=== PATIENT | male | born 1990 | race Caucasian/White ===

== ENCOUNTER 2019-04-26 04:58 | Emergency (ER) | payer OTHER ==
[~2019-04-26] VITALS: Ht 177.8 cm; Wt 95.3 kg
[2019-04-26] MEDS ORDERED: DOLOGESIC 500-1 EACH PO (07:39)
== END 2019-04-26 08:01 ==
LOC: ER 04:58
DX: S60.212A Contusion of left wrist, initial encounter (principal); V49.88XA Car occupant (driver) (passenger) injured in other specified transport accidents, initial encounter; Y92.413 State road as the place of occurrence of the external cause; Y93.89 Activity, other specified; Y99.8 Other external cause status

== ENCOUNTER 2019-08-06 14:09 | Emergency (ER) | payer OTHER ==
[~2019-08-06] VITALS: Ht 177.8 cm; Wt 95.3 kg
[~2019-08-06 14:09] MED LIST: DOLOGESIC 500-1 EACH PO
== END 2019-08-06 18:06 | disposition home or self-care (01) ==
LOC: ER 14:09
DX: R19.7 Diarrhea, unspecified (principal)